=== PATIENT | female | born 1985 | race Caucasian/White ===

== ENCOUNTER 2017-05-25 01:58 | Emergency (ER) | payer BC, OTHER ==
[2017-05-25] MEDS ORDERED: Sodium Chloride 0.9% 1,000 ML IV SCH ×2 (03:00→05:30)
[2017-05-25] MEDS ORDERED: Morphine 4 MG/ML Syringe IVPUSH ONE (03:04)
[2017-05-25] MEDS ORDERED: Lidocaine/EPINEPHrine/Tetracaine Soln 5 ML Each TOP ONE (03:36)
[2017-05-25] MEDS ORDERED: fentaNYL 100 MCG/2 ML SDV IVPUSH ONE (03:37)
[2017-05-25] MEDS ORDERED: LORazepam 2 MG/ML MDV IVPUSH ONE (03:40)
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
--- NOTE | 2017-06-10 09:32 | ER ---
DATE SEEN: 05/25/2017 ADDENDUM: Please note that the length of the laceration was about 1.5 cm. /[id number] RAFIA/JAMESL
== END 2017-05-25 05:10 ==
LOC: FB.ED 01:58
DX: S01.511A Laceration without foreign body of lip, initial encounter (principal); S01.21XA Laceration without foreign body of nose, initial encounter; S01.111A Laceration without foreign body of right eyelid and periocular area, initial encounter; S51.011A Laceration without foreign body of right elbow, initial encounter; F10.129 Alcohol abuse with intoxication, unspecified; V89.2XXA Person injured in unspecified motor-vehicle accident, traffic, initial encounter
CPT/HCPCS: 12011; 36415; 70450; 70486; 71250; 72125; 80053; 84702; 85025; 96361; 96374; 96375; 99291; A9270; G0480; J2060; J2270; J3010; J7040

== ENCOUNTER 2017-07-28 17:56 | Emergency (ER) | payer OTHER, BC ==
[2017-07-28] MEDS ORDERED: Ondansetron 4 MG Tab.DIS PO ONE (18:29)
[2017-07-28] MEDS ORDERED: Ketorolac 60 MG/2 ML SDV IM ONE (18:29)
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
[2017-07-28 18:45] VITALS: BP 133/84
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
== END 2017-07-28 20:28 | disposition home or self-care (01) ==
LOC: FB.ED 17:56
DX: R07.81 Pleurodynia (principal); F17.210 Nicotine dependence, cigarettes, uncomplicated; Z88.1 Allergy status to other antibiotic agents; Z79.899 Other long term (current) drug therapy
CPT/HCPCS: 71101; 96372; 99283; A9270; J1885

== ENCOUNTER 2019-12-02 06:30 | Emergency (ER) | payer BC, OTHER ==
[2019-12-02] MEDS ORDERED: Ondansetron 4 MG Tab.DIS ONE (06:43)
[2019-12-02] MEDS ORDERED: Ketorolac 60 MG/2 ML SDV IM ONE (06:44)
[2019-12-02] MEDS ORDERED: Ondansetron 4 MG Tab.DIS PO STA (06:44)
[2019-12-02] MEDS ORDERED: Sodium Chloride 0.9% 10 ML Syringe FLUSH PRN (07:03)
--- NOTE | 2019-12-02 07:03 | EDM.PDOC ---
ED HPI GENERAL MEDICAL PROBLEM - General Chief Complaint: General Stated Complaint: LUMP ON SIDE OF FACE Time Seen by Provider: 12/02/19 07:00 Source of Information: Reports: Patient History Limitations: Reports: No Limitations - History of Present Illness INITIAL COMMENTS - FREE TEXT/NARRATIVE: Patient presented to the ED because pain and swelling on the left jaw. She was seen in the clinic yesterday and was diagnosed with bacterial parotitis and started on clindamycin 300 mg 4 times daily and cipro 500 mg po BID x 10days. The swelling got worse as well as the pain and c/o nausea but no vomiting. There is no associated fever or chills. Left Face Pain Score (Numeric/FACES): 8 - Related Data Allergies Allergy/AdvReac Type Severity Reaction Status Date / Time amoxicillin [From Augmentin] Allergy Rash Verified 12/02/19 06:45 clavulanic acid Allergy Rash Verified 12/02/19 06:45 [From Augmentin] erythromycin base Allergy Vomiting Verified 12/02/19 06:45 [Erythromycin Base] Home Meds: Home Meds ARIPiprazole [Abilify] 2.5 mg PO DAILY 12/02/19 [History] Ciprofloxacin [Ciprofloxacin HCl] 500 mg PO ASDIRECTED 12/02/19 [History] Clindamycin HCl 300 mg PO ASDIRECTED 12/02/19 [History] Clindamycin HCl 300 mg PO QID #40 capsule 12/02/19 [Rx] FLUoxetine HCl [Prozac] 80 mg PO DAILY 12/02/19 [History] Ibuprofen 800 mg PO TID PRN #30 tablet 12/02/19 [Rx] Mirtazapine [Remeron] 15 mg PO BEDTIME 12/02/19 [History] Ondansetron [Zofran ODT] 4 mg PO Q6H PRN #10 tab.dis 12/02/19 [Rx] Pregabalin [Lyrica] 25 mg PO DAILY 12/02/19 [History] hydrOXYzine HCL [Hydroxyzine HCl] 75 mg PO DAILY 12/02/19 [History] tiZANidine 2 mg PO TID 12/02/19 [History] traZODone 100 mg PO DAILY 12/02/19 [History] Past Medical History Other Genitourinary History: Stent placed for kidney stones. 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 Neurological History: Reports: Migraines Psychiatric History: Reports: Anxiety, Depression, OCD - Past Surgical History HEENT Surgical History: Reports: Tonsillectomy, Other (See Below) GI Surgical History: Reports: Appendectomy Musculoskeletal Surgical History: Reports: Shoulder Surgery Social & Family History - Family History Family Medical History: Noncontributory - Tobacco Use Smoking Status *Q: Current Every Day Smoker Years of Tobacco use: 15 Packs/Tins Daily: 0.4 - Caffeine Use Caffeine Use: Reports: Soda - Recreational Drug Use Recreational Drug Use: No ED ROS GENERAL - Review of Systems Review Of Systems: See Below Constitutional: Reports: No Symptoms HEENT: Reports: No Symptoms Respiratory: Reports: No Symptoms Cardiovascular: Reports: No Symptoms Endocrine: Reports: No Symptoms GI/Abdominal: Reports: Nausea : Reports: No Symptoms Musculoskeletal: Reports: No Symptoms Skin: Reports: No Symptoms Neurological: Reports: No Symptoms ED EXAM, GENERAL - Physical Exam Exam: See Below Exam Limited By: No Limitations General Appearance: Alert Eye Exam: Bilateral Eye: PERRL Nose: Normal Inspection, Normal Mucosa Throat/Mouth: Normal Inspection, Normal Lips, Other (tenderness and swelling, left jaw) Head: Atraumatic, Normocephalic Neck: Normal Inspection, Supple, Non-Tender Respiratory/Chest: No Respiratory Distress, Lungs Clear, Normal Breath Sounds Cardiovascular: Normal Peripheral Pulses, Regular Rate, Rhythm, No Edema GI/Abdominal: Normal Bowel Sounds, Soft, Non-Tender Extremities: Normal Inspection, Normal Range of Motion Neurological: Alert, Oriented, CN II-XII Intact, Normal Cognition Psychiatric: Normal Affect Course - Vital Signs Text/Narrative:: labs-pending Rocephine 1 gm IV toradol 60 mg IM x1 Zofran ODT 4 mg PO x1 Last Recorded V/S: Last Vital Signs Temp 37.3 C 12/02/19 06:35 Pulse 113 H 12/02/19 06:35 Resp 16 12/02/19 06:35 BP 144/95 H 12/02/19 06:35 Pulse Ox 98 12/02/19 06:35 - Orders/Labs/Meds Orders: Active Orders 24 hr Category Date Time Status BASIC METABOLIC PANEL,BMP [CHEM] Stat Lab 12/02/19 07:20 Received CBC WITH AUTO DIFF [HEME] Stat Lab 12/02/19 07:20 Received CRP [C-REACTIVE PROTEIN] [CHEM] Stat Lab 12/02/19 07:20 Received MUMPS ANTIBODIES, IGG Routine Lab 12/02/19 07:28 Ordered MUMPS ANTIBODIES, IGM Routine Lab 12/02/19 07:28 Ordered MUMPS VIRAL CULTURE Routine Lab 12/02/19 07:28 Ordered Sodium Chloride 0.9% [Normal Saline] 1,000 ml Med 12/02/19 07:30 Active IV ASDIRECTED Sodium Chloride 0.9% [Saline Flush] Med 12/02/19 07:03 Active 10 ml FLUSH ASDIRECTED PRN cefTRIAXone [Rocephin] Med 12/02/19 07:30 Active 1 gm IVPUSH Q24H Saline Lock Insert [OM.PC] Routine Oth 12/02/19 07:03 Ordered Medication Orders Ceftriaxone Sodium (Rocephin) 1 gm IVPUSH Q24H ULYSSES Sodium Chloride (Normal Saline) 1,000 mls @ 999 mls/hr IV ASDIRECTED ULYSSES Sodium Chloride (Saline Flush) 10 ml FLUSH ASDIRECTED PRN PRN Reason: Keep Vein Open Meds: Medications Generic Name Dose Route Start Last Admin Trade Name Freq PRN Reason Stop Dose Admin Ceftriaxone Sodium 1 gm 12/02/19 07:30 Rocephin IVPUSH Q24H ULYSSES Sodium Chloride 1,000 mls @ 999 mls/hr 12/02/19 07:30 Normal Saline IV ASDIRECTED ULYSSES Sodium Chloride 10 ml 12/02/19 07:03 Saline Flush FLUSH ASDIRECTED PRN Keep Vein Open Discontinued Medications Generic Name Dose Route Start Last Admin Trade Name Freq PRN Reason Stop Dose Admin Ketorolac Tromethamine 60 mg 12/02/19 06:44 12/02/19 06:54 Toradol IM 12/02/19 06:45 60 mg ONETIME ONE Administration Ondansetron HCl 4 mg 12/02/19 06:44 12/02/19 06:52 Zofran Odt PO 12/02/19 06:45 4 mg NOW STA Administration Ondansetron HCl Confirm 12/02/19 06:43 12/02/19 06:52 Zofran Odt Administered 12/02/19 06:44 Not Given Dose 4 mg .ROUTE .STK-MED ONE Departure - Departure Time of Disposition: 08:30 Disposition: Home, Self-Care 01 Condition: Good Clinical Impression: Parotitis, acute - Discharge Information Prescriptions: Clindamycin HCl 300 mg PO QID #40 capsule Ibuprofen 800 mg PO TID PRN #30 tablet PRN Reason: Pain Ondansetron [Zofran ODT] 4 mg PO Q6H PRN #10 tab.dis PRN Reason: Nausea Instructions: Parotitis, [id number] Referrals: Vic Barrientos MD [Primary Care Provider] - Forms: ED Department Discharge Additional Instructions: please read discharge instructions on parotis ibuprofen 800 mg 3 times daily for 7 days clindamycin 600 mg 4 times daily for 10 days Rocephin 1 gm IV daily for 5 days Zofran ODT 4 mg every 6 hours as needed for nausea Tylenol with codeine 1-2 tablets every 4-6 hours as needed for pain follow up with your doctor this coming week Sepsis Event Note (ED) - Evaluation Sepsis Screening Result: Possible Sepsis Risk - Focused Exam Vital Signs: Vital Signs Temp Pulse Resp BP Pulse Ox 12/02/19 06:35 37.3 C 113 H 16 144/95 H 98 - My Orders Last 24 Hours: My Active Orders 12/02/19 07:03 Sodium Chloride 0.9% [Saline Flush] 10 ml FLUSH ASDIRECTED PRN Saline Lock Insert [OM.PC] Routine 12/02/19 07:20 BASIC METABOLIC PANEL,BMP [CHEM] Stat CBC WITH AUTO DIFF [HEME] Stat CRP [C-REACTIVE PROTEIN] [CHEM] Stat 12/02/19 07:28 MUMPS ANTIBODIES, IGG Routine MUMPS ANTIBODIES, IGM Routine MUMPS VIRAL CULTURE Routine 12/02/19 07:30 Sodium Chloride 0.9% [Normal Saline] 1,000 ml IV ASDIRECTED cefTRIAXone [Rocephin] 1 gm IVPUSH Q24H - Assessment/Plan Last 24 Hours: My Active Orders 12/02/19 07:03 Sodium Chloride 0.9% [Saline Flush] 10 ml FLUSH ASDIRECTED PRN Saline Lock Insert [OM.PC] Routine 12/02/19 07:20 BASIC METABOLIC PANEL,BMP [CHEM] Stat CBC WITH AUTO DIFF [HEME] Stat CRP [C-REACTIVE PROTEIN] [CHEM] Stat 12/02/19 07:28 MUMPS ANTIBODIES, IGG Routine MUMPS ANTIBODIES, IGM Routine MUMPS VIRAL CULTURE Routine 12/02/19 07:30 Sodium Chloride 0.9% [Normal Saline] 1,000 ml IV ASDIRECTED cefTRIAXone [Rocephin] 1 gm IVPUSH Q24H
[2019-12-02] MEDS ORDERED: Sodium Chloride 0.9% 1,000 ML IV SCH (07:30)
[2019-12-02] MEDS ORDERED: cefTRIAXone 1 GM Vial IVPUSH SCH (07:30)
[2019-12-02 09:37] VITALS: BP 114/69; PULSE 82
== END 2019-12-02 09:17 | disposition home or self-care (01) ==
LOC: FB.ED 06:30
DX: K11.21 Acute sialoadenitis (principal); F41.9 Anxiety disorder, unspecified; F32.9 Major depressive disorder, single episode, unspecified; F17.210 Nicotine dependence, cigarettes, uncomplicated; Z88.1 Allergy status to other antibiotic agents; Z79.899 Other long term (current) drug therapy
CPT/HCPCS: 36415; 80048; 85025; 86140; 96372; 99283; A9270-GY; J0696; J1885; J7030

== ENCOUNTER 2019-12-09 11:01 | Emergency (ER) | payer BC ==
--- NOTE | 2019-12-09 11:25 | EDM.PDOC ---
ED HPI GENERAL MEDICAL PROBLEM - General Chief Complaint: Lower Extremity Injury/Pain Stated Complaint: RT FOOT INJURY Time Seen by Provider: 12/09/19 11:15 Source of Information: Reports: Patient History Limitations: Reports: No Limitations - History of Present Illness INITIAL COMMENTS - FREE TEXT/NARRATIVE: Greer comes into [facility] ED with a painful, swollen R foot. She was getting out of bed at 0300 hrs this am to let the dogs outside when she experienced pain in the R forefoot. She did not fall, twist, or step onto anything out of the ordinary. Pain with swelling and appearance of some ecchymoses of forefoot has emerged this am, prompting visit. She took some Ibuprofen for pain before arrival. Her general health is good. No . right foot Pain Score (Numeric/FACES): 6 - Related Data Allergies Allergy/AdvReac Type Severity Reaction Status Date / Time amoxicillin [From Augmentin] Allergy Rash Verified 12/09/19 11:19 clavulanic acid Allergy Rash Verified 12/09/19 11:19 [From Augmentin] erythromycin base Allergy Vomiting Verified 12/09/19 11:19 [Erythromycin Base] Home Meds: Home Meds ARIPiprazole [Abilify] 2.5 mg PO DAILY 12/02/19 [History] Ciprofloxacin [Ciprofloxacin HCl] 500 mg PO ASDIRECTED 12/02/19 [History] Clindamycin HCl 300 mg PO ASDIRECTED 12/02/19 [History] Clindamycin HCl 300 mg PO QID #40 capsule 12/02/19 [Rx] FLUoxetine HCl [Prozac] 80 mg PO DAILY 12/02/19 [History] Ibuprofen 800 mg PO TID PRN #30 tablet 12/02/19 [Rx] Mirtazapine [Remeron] 15 mg PO BEDTIME 12/02/19 [History] Ondansetron [Zofran ODT] 4 mg PO Q6H PRN #10 tab.dis 12/02/19 [Rx] Pregabalin [Lyrica] 25 mg PO DAILY 12/02/19 [History] hydrOXYzine HCL [Hydroxyzine HCl] 75 mg PO DAILY 12/02/19 [History] tiZANidine 2 mg PO TID 12/02/19 [History] traZODone 100 mg PO DAILY 12/02/19 [History] Past Medical History Other Genitourinary History: Stent placed for kidney stones. [employer] TE[employer] History: Reports: Other Musculoskeletal History: Foot cyst removed. Neurological History: Reports: Migraines Psychiatric History: Reports: Anxiety, Depression, OCD - Past Surgical History HEENT Surgical History: Reports: Tonsillectomy, Other (See Below) GI Surgical History: Reports: Appendectomy Musculoskeletal Surgical History: Reports: Shoulder Surgery Social & Family History - Family History Family Medical History: Noncontributory - Caffeine Use Caffeine Use: Reports: Soda Review of Systems - Review of Systems Review Of Systems: Comprehensive ROS is negative, except as noted in HPI. ED EXAM, GENERAL - Physical Exam Exam: See Below Exam Limited By: No Limitations General Appearance: Alert, WD/WN, Mild Distress Head: Atraumatic, Normocephalic Neck: Normal Inspection, Supple Respiratory/Chest: Lungs Clear Cardiovascular: Regular Rate, Rhythm Back Exam: Normal Inspection Extremities: Joint Swelling (R foot: visible swelling and ecchymoses in proximity to distal 2nd and 3rd MT heads with tenderness to palpitation, no crepitus; mid and hindfoot benign to exam; CMS intact) Neurological: Alert, Oriented, CN II-XII Intact, Normal Cognition, No Motor/Sensory Deficits Psychiatric: Normal Affect, Normal Mood Skin Exam: Warm, Dry, No Rash, Ecchymosis Lymphatic: No Adenopathy Course - Vital Signs Text/Narrative:: Following assessment, I obtained x rays of R foot: findings note fxs of 2nd, 3rd, and 4th MT distally in satisfactory position. She will be fitted with a CAM Boot, and provided crutches if needed for ambulation. Last Recorded V/S: Last Vital Signs Temp 36.8 C 12/09/19 11:05 Pulse 104 H 12/09/19 11:05 Resp 18 12/09/19 11:05 BP 130/81 12/09/19 11:05 Pulse Ox 96 12/09/19 11:05 - Orders/Labs/Meds Orders: Active Orders 24 hr Category Date Time Status Foot Comp Min 3V Rt [CR] Stat Exams 12/09/19 11:19 Taken Departure - Departure Time of Disposition: 12:05 Disposition: Home, Self-Care 01 Condition: Fair Clinical Impression: Closed fracture of second metatarsal bone of right foot Qualifiers: Encounter type: initial encounter Fracture alignment: nondisplaced Qualified Code(s): S92.324A - Nondisplaced fracture of second metatarsal bone, right foot, initial encounter for closed fracture Closed fracture of third metatarsal bone of right foot Qualifiers: Encounter type: initial encounter Fracture alignment: nondisplaced Qualified Code(s): S92.334A - Nondisplaced fracture of third metatarsal bone, right foot, initial encounter for closed fracture Closed fracture of fourth metatarsal bone of right foot Qualifiers: Encounter type: initial encounter Fracture alignment: nondisplaced Qualified Code(s): S92.344A - Nondisplaced fracture of fourth metatarsal bone, right foot, initial encounter for closed fracture - Discharge Information *PRESCRIPTION DRUG MONITORING PROGRAM REVIEWED*: Not Applicable *COPY OF PRESCRIPTION DRUG MONITORING REPORT IN PATIENT BUFFY: Not Applicable Referrals: Vic Barrientos MD [Primary Care Provider] - Forms: ED Department Discharge Sepsis Event Note (ED) - Focused Exam Vital Signs: Vital Signs Temp Pulse Resp BP Pulse Ox 12/09/19 11:05 36.8 C 104 H 18 130/81 96 - Problem List & Annotations (1) Closed fracture of fourth metatarsal bone of right foot SNOMED Code(s): 56258782 Code(s): S92.341A - DISP FX OF FOURTH METATARSAL BONE, RIGHT FOOT, INIT Status: Acute Current Visit: Yes Annotation/Comment:: CAM Boot, crutches if needed, NSAIDs for pain, RICE. Qualifiers: Encounter type: initial encounter Fracture alignment: nondisplaced Qualified Code(s): S92.344A - Nondisplaced fracture of fourth metatarsal bone, right foot, initial encounter for closed fracture (2) Closed fracture of second metatarsal bone of right foot SNOMED Code(s): 56875688 Code(s): S92.321A - DISP FX OF SECOND METATARSAL BONE, RIGHT FOOT, INIT Status: Acute Current Visit: Yes Annotation/Comment:: CAM Boot, crutches if needed, NSAIDs, RICE Qualifiers: Encounter type: initial encounter Fracture alignment: nondisplaced Qualified Code(s): S92.324A - Nondisplaced fracture of second metatarsal bone, right foot, initial encounter for closed fracture (3) Closed fracture of third metatarsal bone of right foot SNOMED Code(s): 383973799 Code(s): S92.331A - DISP FX OF THIRD METATARSAL BONE, RIGHT FOOT, INIT Status: Acute Current Visit: Yes Annotation/Comment:: CAM Boot, crutches if needed, NSAIDS, RICE Qualifiers: Encounter type: initial encounter Fracture alignment: nondisplaced Qualified Code(s): S92.334A - Nondisplaced fracture of third metatarsal bone, right foot, initial encounter for closed fracture - Problem List Review Problem List Initiated/Reviewed/Updated: Yes - My Orders Last 24 Hours: My Active Orders 12/09/19 11:19 Foot Comp Min 3V Rt [CR] Stat - Assessment/Plan Last 24 Hours: My Active Orders 12/09/19 11:19 Foot Comp Min 3V Rt [CR] Stat Plan: Follow up with PCP in 7-10 days.
[2019-12-09 11:47] VITALS: BP 130/81; PULSE 104
--- NOTE | 2019-12-09 17:28 | CR ---
INDICATION: Injury. Ecchymosis with swelling and tenderness 2nd and 3rd metatarsals. RIGHT FOOT: Three views of the right foot were obtained 12/09/19 - no comparisons. Oblique fractures through the distal shafts and metaphyses of the 2nd and 3rd metatarsals are noted with lateral offset of the distal fracture fragments to a greater extent at the 3rd metatarsal fracture site, which is slightly comminuted. An additional non-distracted, slightly angulated fracture that is comminuted is noted at the distal metaphysis of the 4th metatarsal. No other bone or joint abnormality was identified. IMPRESSION: Fractures 2nd through 4th metatarsals. Report was given in person to Dr. Murray soon after the examination was completed. [facility]
== END 2019-12-09 12:08 | disposition home or self-care (01) ==
LOC: FB.ED 11:01
DX: S92.324A Nondisplaced fracture of second metatarsal bone, right foot, initial encounter for closed fracture (principal); S92.334A Nondisplaced fracture of third metatarsal bone, right foot, initial encounter for closed fracture; S92.344A Nondisplaced fracture of fourth metatarsal bone, right foot, initial encounter for closed fracture; F41.9 Anxiety disorder, unspecified; F32.9 Major depressive disorder, single episode, unspecified; Z88.1 Allergy status to other antibiotic agents; Z79.899 Other long term (current) drug therapy; X58.XXXA Exposure to other specified factors, initial encounter
CPT/HCPCS: 73630-RT; 99283

== ENCOUNTER 2020-05-01 06:48 | Day surgery (SDC) | payer BC ==
[~2020-05-01 06:48] MED LIST: Lactated Ringers 1,000 ML IV SCH; Sodium Chloride 0.9% 10 ML Syringe FLUSH PRN
[2020-05-01] MEDS ORDERED: Propofol 200 MG/20 ML SDV IV ONE (06:49)
--- NOTE | 2020-05-01 08:22 | PCM.OPNOTE ---
- General Post-Op/Procedure Note Date of Surgery/Procedure: 05/01/20 Operative Procedure(s): egd with cold forcep biopsy Findings: gastritis esophagitis Pre Op Diagnosis: gerd Post-Op Diagnosis: gastritis. esophagitis Anesthesia Technique: MAC Primary Surgeon: Vaughn Galvez Anesthesia Provider: Jemal Banda Pathology: stomach and distal esophagus Complications: None Condition: Good Free Text/Narrative:: see dictation
[2020-05-01 09:33] VITALS: BP 118/62; PULSE 67
--- NOTE | 2020-05-01 12:46 | OR ---
DATE OF OPERATION: 05/01/2020 SURGEON: Vaughn Galvez MD PROCEDURE PERFORMED: Esophagogastroduodenoscopy with cold forceps biopsy. PREOPERATIVE DIAGNOSIS: Symptomatic gastroesophageal reflux disease. POSTOPERATIVE DIAGNOSIS: Gastritis as well as esophagitis. INDICATIONS FOR PROCEDURE: This is a 34-year-old white female who is having an exacerbation of her reflux disease. She was offered and accepted an EGD to evaluate the severity. She has never had an upper endoscopy. DESCRIPTION OF OPERATION: After an excellent IV sedation was administered, the bite block was inserted. Flexible endoscope was passed without difficulty down the patient's esophagus into the stomach. The stomach was insufflated. Scope passed through the pylorus, second portion duodenum, and slowly withdrawn. The following findings were noted. The duodenum was essentially unremarkable. The stomach demonstrated diffuse gastritis. Multiple biopsies were taken. GE junction measured at 40 cm and the distal 1 cm demonstrated some evidence of what appeared to be esophagitis. Circumferential biopsies were taken. The remainder of the esophageal exam was unremarkable. Results will be sent to the patient via letter. She is taken to Recovery, having tolerated the procedure. /[id number] /MODL
== END 2020-05-01 09:08 | disposition home or self-care (01) ==
LOC: FB.SDS 06:48
PROVIDERS: ATTEND Surgery
DX: K29.50 Unspecified chronic gastritis without bleeding (principal); K21.00 Gastro-esophageal reflux disease with esophagitis, without bleeding; F41.9 Anxiety disorder, unspecified; F17.210 Nicotine dependence, cigarettes, uncomplicated; F33.1 Major depressive disorder, recurrent, moderate; Z79.899 Other long term (current) drug therapy; Z88.8 Allergy status to other drugs, medicaments and biological substances; Z98.890 Other specified postprocedural states
CPT/HCPCS: 00731-QZ; 88305; 88313; 88342; J2704; J7120

== ENCOUNTER 2022-02-09 11:12 | Emergency (ER) | payer BC, OTHER ==
[2022-02-09] MEDS ORDERED: Ondansetron 4 MG Tab.DIS PO ONE ×2 (11:13→11:28)
[2022-02-09 13:12] VITALS: BP 129/81
[2022-02-09 13:23] VITALS: PULSE 103
== END 2022-02-09 12:10 | disposition home or self-care (01) ==
LOC: FB.ED 11:12
DX: R11.0 Nausea (principal); Z88.0 Allergy status to penicillin; Z88.1 Allergy status to other antibiotic agents; Z79.899 Other long term (current) drug therapy
CPT/HCPCS: 80307; 99283; Q0162; 99281

== ENCOUNTER 2022-04-03 21:12 | Emergency (ER) | payer OTHER ==
[2022-04-03] MEDS ORDERED: Sodium Chloride 0.9% 10 ML Syringe FLUSH PRN (21:24)
[2022-04-03] MEDS ORDERED: Sodium Chloride 0.9% 1,000 ML IV ONE (21:24)
[2022-04-03 21:48] LABS: ESTIMATED GFR 120 mL/min (>60)
[2022-04-03 22:03] LABS: ACETAMINOPHEN < 2 ug/mL (<2)
[2022-04-04 05:52] VITALS: BP 110/53; PULSE 92
== END 2022-04-04 08:52 ==
LOC: FB.ED 21:12
DX: T50.912A Poisoning by multiple unspecified drugs, medicaments and biological substances, intentional self-harm, initial encounter (principal); S61.512A Laceration without foreign body of left wrist, initial encounter; R45.851 Suicidal ideations; R41.82 Altered mental status, unspecified; R09.02 Hypoxemia; F10.921 Alcohol use, unspecified with intoxication delirium; F17.210 Nicotine dependence, cigarettes, uncomplicated; Z20.822 Contact with and (suspected) exposure to COVID-19; Z88.0 Allergy status to penicillin; Z88.1 Allergy status to other antibiotic agents; Z79.899 Other long term (current) drug therapy; Z86.16 Personal history of COVID-19; Z90.710 Acquired absence of both cervix and uterus
CPT/HCPCS: 36415; 80053; 80143; 80179; 80307; 81001; 83735; 85025; 87635; 93005; 96360; 99285; J3490; J7030; U0002

== ENCOUNTER 2022-06-20 19:23 | Emergency (ER) | payer OTHER ==
[2022-06-20] MEDS ORDERED: traMADol 50 MG Tab PO STA (19:43)
[2022-06-20] MEDS ORDERED: Azithromycin 500 MG Tab PO ONE (19:43)
[2022-06-20 19:53] VITALS: BP 117/74; PULSE 75
== END 2022-06-20 19:57 | disposition home or self-care (01) ==
LOC: FB.ED 19:23
DX: L03.213 Periorbital cellulitis (principal); Z88.0 Allergy status to penicillin; Z88.1 Allergy status to other antibiotic agents; Z86.16 Personal history of COVID-19
CPT/HCPCS: 99283; A9270

== ENCOUNTER 2024-06-07 20:19 | Emergency (ER) | payer OTHER, MEDICAID ==
[2024-06-07] MEDS: Ketorolac 30 MG/ML SDV IM ONE (22:17)
[2024-06-07 22:34] VITALS: BP 149/93; PULSE 95
== END 2024-06-07 22:30 | disposition home or self-care (01) ==
LOC: FB.ED 20:19
DX: S93.601A Unspecified sprain of right foot, initial encounter (principal); Z90.49 Acquired absence of other specified parts of digestive tract; Z90.710 Acquired absence of both cervix and uterus; Z86.16 Personal history of COVID-19; Z88.0 Allergy status to penicillin; Z88.1 Allergy status to other antibiotic agents; Z88.8 Allergy status to other drugs, medicaments and biological substances; Z79.899 Other long term (current) drug therapy; X58.XXXA Exposure to other specified factors, initial encounter
CPT/HCPCS: 73630; 96372; 99283; J1885

== ENCOUNTER 2024-07-15 19:29 | Observation (INO) | payer OTHER, MEDICAID ==
[2024-07-15] MEDS: Sodium Chloride 0.9% 1,000 ML IV ONE ×3 (20:00→22:16)
[2024-07-15] MEDS: Sodium Chloride 0.9% 10 ML Syringe FLUSH PRN (20:01)
[2024-07-15] MEDS: Ondansetron 4 MG/2 ML SDV IVPUSH ONE (20:06)
[2024-07-15 20:12] LABS: BASOPHILS ABSOLUTE AUTO 0.1 x10-3/uL (0.0-0.1); EOSINOPHILS ABSOLUTE AUTO 0.1 x10-3/uL (0.0-0.8); EOSINOPHILS PERCENT AUTO 1.2 % (0.6-8.1); HEMATOCRIT 42.1 % (34.2-48.2); HEMOGLOBIN 14.6 g/dL (11.4-15.5); LYMPHOCYTES ABSOLUTE AUTO 1.9 x10-3/uL (1.0-4.4); LYMPHOCYTES PERCENT AUTO 18.8 % (18.4-52.1); MEAN CORPUSCULAR HEMOGLOBIN 32.9 pg (23.9-33.9); MEAN CORPUSCULAR HGB CONC 34.8 g/dL (31.9-34.8); MEAN CORPUSCULAR VOLUME 94.6 fL (76.7-100.5); MEAN PLATELET VOLUME 7.3 fL (7.1-12.4); MONOCYTES ABSOLUTE AUTO 0.9 x10-3/uL (0.3-1.0); NEUTROPHILS ABSOLUTE AUTO 7.2 x10-3/uL (1.5-6.3); PLATELET COUNT,PLT 283 x10(3)uL (151-488); RED BLOOD CELL COUNT 4.45 x10(6)uL (3.60-5.20); RED CELL DISTRIBUTION WIDTH 13.8 % (12.3-16.5); WHITE BLOOD CELL COUNT,WBC 10.2 x10-3/uL (3.0-10.3)
[2024-07-15 20:16] LABS: BLOOD UREA NITROGEN,BUN 7 mg/dL (7-18); BUN/CREATININE RATIO 8.8 (9-20); CALCIUM 8.3 mg/dL (8.6-10.2); CARBON DIOXIDE,CO2 27 mmol/L (21-32); CHLORIDE,CL 100 mmol/L (100-110); CREATININE 0.8 mg/dL (0.55-1.02); EST CRCL DRUG DOSING (CG) 93.63 mL/min; ESTIMATED GFR 97 mL/min (>60); GLUCOSE RANDOM 169 mg/dL (80-116); POTASSIUM,K 3.3 mmol/L (3.5-5.3); SODIUM,NA 142 mmol/L (135-145)
[2024-07-15 20:21] LABS: A/G RATIO 1.1; ALANINE AMINOTRANSFERASE,ALT 51 U/L (12-36); ALBUMIN 4.1 g/dL (3.5-5.2); ALKALINE PHOSPHATASE 77 IU/L (56-112); ASPARTATE AMNIOTRANSFERASE,AST 63 IU/L (5-25); PROTEIN TOTAL,TP 7.8 g/dL (6.0-8.0)
[2024-07-15 20:26] LABS: MAGNESIUM 1.2 mg/dL (1.8-2.5)
[2024-07-15 20:41] LABS: BILIRUBIN,URINE SMALL (NEGATIVE); GLUCOSE,URINE NORMAL (NORMAL); KETONES,URINE 15 mg/dL (NEGATIVE); LEUKOCYTE ESTERASE,URINE MODERATE (NEGATIVE); NITRITE,URINE POSITIVE (NEGATIVE); OCCULT BLOOD,URINE MODERATE (NEGATIVE); PROTEIN,URINE 500 mg/dL (NEGATIVE); UROBILINOGEN,URINE 8 mg/dL (NEGATIVE)
[2024-07-15 20:45] LABS: APPEARANCE,URINE CLOUDY (CLEAR); BACTERIA,URINE MODERATE (NS); COLOR,URINE YELLOW (YELLOW); RBC,URINE 0-5 (0-5); SQUAMOUS EPITHELIAL CELLS,UR MODERATE (NS,R,O)
[2024-07-15 20:46] LABS: AMORPHOUS SEDIMENT,URINE PACKED
[2024-07-15] MEDS: Magnesium Sulfate/Water Premix 2 GM in Premix Bag 1 BAG IV ONE (20:48)
[2024-07-15] MEDS: diphenhydrAMINE 50 MG/ML SDV IVPUSH ONE (21:10)
[2024-07-15] MEDS: Prochlorperazine 10 MG/2 ML SDV IVPUSH ONE (21:11)
[2024-07-15] MEDS: cefTRIAXone 2 GM Vial IVPUSH ONE (22:16)
[2024-07-15] MEDS: Sodium Chloride 0.9% 1,000 ML IV SCH (23:54)
[2024-07-15] MEDS ORDERED: Prochlorperazine 5 MG in Sodium Chloride 0.9% 50 ML IV PRN (23:59)
[2024-07-16] MEDS ORDERED: Non-Formulary Medication 1 Each (Hydroxyzine Hcl [Hydroxyzine Hcl] 50 MG Tablet) PO PRN (00:29)
[2024-07-16] MEDS: Sodium Chloride 0.9% 500 ML IV ONE (00:46)
[2024-07-16] MEDS: Pantoprazole 40 MG Vial IVPUSH SCH (00:58)
[2024-07-16] MEDS: Ondansetron 4 MG/2 ML SDV IV PRN (01:01)
[2024-07-16] MEDS: FLUoxetine 10 MG Cap PO SCH (01:03)
[2024-07-16] MEDS: FLUoxetine 20 MG Cap PO SCH (01:03)
[2024-07-16] MEDS: Prazosin 1 MG Cap PO SCH (01:03)
[2024-07-16] MEDS: busPIRone 15 MG Tab PO SCH (01:04)
[2024-07-16] MEDS: traZODone 50 MG Tab PO SCH (01:04)
[2024-07-16] MEDS: Acetaminophen 325 MG Tab PO PRN (01:04)
[2024-07-16] MEDS: Prochlorperazine 10 MG/2 ML SDV IVPUSH PRN (04:25)
[2024-07-16] MEDS: hydrOXYzine HCl 25 MG Tab PO PRN (04:25)
[2024-07-16 04:29] VITALS: PULSE 86
[2024-07-16] MEDS: Magnesium Sulfate/Water Premix 2 GM in Premix Bag 1 BAG IV ONE (05:00)
[2024-07-16 07:42] LABS: BASOPHILS PERCENT AUTO 0.5 % (0.2-1.5); EOSINOPHILS ABSOLUTE AUTO 0.2 x10-3/uL (0.0-0.8); EOSINOPHILS PERCENT AUTO 2.8 % (0.6-8.1); HEMATOCRIT 37.1 % (34.2-48.2); HEMOGLOBIN 12.7 g/dL (11.4-15.5); LYMPHOCYTES ABSOLUTE AUTO 2.4 x10-3/uL (1.0-4.4); LYMPHOCYTES PERCENT AUTO 30.8 % (18.4-52.1); MEAN CORPUSCULAR HGB CONC 34.3 g/dL (31.9-34.8); MEAN CORPUSCULAR VOLUME 96.1 fL (76.7-100.5); MEAN PLATELET VOLUME 7.3 fL (7.1-12.4); MONOCYTES ABSOLUTE AUTO 0.8 x10-3/uL (0.3-1.0); MONOCYTES PERCENT AUTO 9.9 % (4.4-15.7); NEUTROPHILS ABSOLUTE AUTO 4.3 x10-3/uL (1.5-6.3); PLATELET COUNT,PLT 186 x10(3)uL (151-488); RED BLOOD CELL COUNT 3.85 x10(6)uL (3.60-5.20); RED CELL DISTRIBUTION WIDTH 13.8 % (12.3-16.5); WHITE BLOOD CELL COUNT,WBC 7.6 x10-3/uL (3.0-10.3)
[2024-07-16 07:49] LABS: BLOOD UREA NITROGEN,BUN 6 mg/dL (7-18); BUN/CREATININE RATIO 8.6 (9-20); CALCIUM 6.6 mg/dL (8.6-10.2); CARBON DIOXIDE,CO2 26 mmol/L (21-32); CHLORIDE,CL 105 mmol/L (100-110); CREATININE 0.7 mg/dL (0.55-1.02); ESTIMATED GFR 114 mL/min (>60); GLUCOSE RANDOM 138 mg/dL (80-116); MAGNESIUM 2.1 mg/dL (1.8-2.5); POTASSIUM,K 3.5 mmol/L (3.5-5.3); SODIUM,NA 142 mmol/L (135-145)
[2024-07-16] MEDS ORDERED: busPIRone 15 MG Tab PO SCH (09:00)
[2024-07-16 09:16] VITALS: BP 143/89
[2024-07-16] MEDS ORDERED: Prazosin 1 MG Cap PO SCH (21:00)
[2024-07-16] MEDS ORDERED: Non-Formulary Medication 1 Each (Trazodone [Trazodone] 150 MG Tablet) PO SCH (21:00)
[2024-07-16] MEDS ORDERED: FLUoxetine 10 MG Cap PO SCH (21:00)
[2024-07-16] MEDS ORDERED: traZODone 50 MG Tab PO SCH (21:00)
[2024-07-16] MEDS ORDERED: FLUoxetine 20 MG Cap PO SCH (21:00)
== END 2024-07-16 10:10 | disposition home or self-care (01) ==
LOC: FB.ED 19:29 → FB.MS 23:49
PROVIDERS: ADMIT Emergency Medicine; ATTEND Family Medicine
DX: U07.1 COVID-19 (principal); E83.42 Hypomagnesemia; E87.20 Acidosis, unspecified; F32.A Depression, unspecified; N39.0 Urinary tract infection, site not specified; F41.9 Anxiety disorder, unspecified; Z79.899 Other long term (current) drug therapy; Z88.0 Allergy status to penicillin; Z88.1 Allergy status to other antibiotic agents
CPT/HCPCS: 36415; 71046; 80048; 80053; 81001; 83605; 83735; 85025; 86140; 87040; 87086; 87428; 96361; 96365; 96366; 96375; 96376; 99285; A9270; G0378; J0696; J0780; J1200; J2405; J2470; J3475; J7030; 99222; 99238

== ENCOUNTER 2025-03-17 01:20 | Emergency (ER) | payer OTHER, MEDICAID ==
[2025-03-17 02:05] LABS: BASE EXCESS VENOUS,POC 0 mmol/L (-2 - 3+); PCO2 VENOUS,POC 30 mmHg (41-51); PH VENOUS,POC 7.48 pH Units (7.32-7.43)
[2025-03-17 02:17] LABS: A/G RATIO 0.9; BILIRUBIN TOTAL 0.5 mg/dL (0.1-1.3); CARBON DIOXIDE,CO2 22 mmol/L (21-32); CHLORIDE,CL 106 mmol/L (100-110); CREATININE 0.6 mg/dL (0.55-1.02); EST CRCL DRUG DOSING (CG) 123.63 mL/min; ESTIMATED GFR 118 mL/min (>60); GLUCOSE RANDOM 206 mg/dL (80-116); POTASSIUM,K 2.9 mmol/L (3.5-5.3); PROTEIN TOTAL,TP 8.0 g/dL (6.0-8.0); SODIUM,NA 143 mmol/L (135-145)
[2025-03-17 02:19] LABS: BLOOD UREA NITROGEN,BUN < 5 mg/dL (7-18); PRO B-TYPE NATRIUR PEPT,BNPPRO 13 pg/mL (<=125)
[2025-03-17 02:20] LABS: ALANINE AMINOTRANSFERASE,ALT 183 U/L (12-36); ASPARTATE AMNIOTRANSFERASE,AST 338 IU/L (5-25)
[2025-03-17] MEDS: Potassium Chloride 20 MEQ Tab.ER PO ONE (02:38)
[2025-03-17 02:39] LABS: BASOPHILS ABSOLUTE AUTO 0.0 x10-3/uL (0.0-0.1); BASOPHILS PERCENT AUTO 0.3 % (0.2-1.5); EOSINOPHILS ABSOLUTE AUTO 0.3 x10-3/uL (0.0-0.8); EOSINOPHILS PERCENT AUTO 2.0 % (0.6-8.1); LYMPHOCYTES ABSOLUTE AUTO 4.5 x10-3/uL (1.0-4.4); LYMPHOCYTES PERCENT AUTO 35.1 % (18.4-52.1); MEAN PLATELET VOLUME 7.7 fL (7.1-12.4); MONOCYTES ABSOLUTE AUTO 1.1 x10-3/uL (0.3-1.0); MONOCYTES PERCENT AUTO 8.3 % (4.4-15.7); NEUTROPHILS ABSOLUTE AUTO 7.0 x10-3/uL (1.5-6.3); NEUTROPHILS PERCENT AUTO 54.3 % (30.8-76.2); PLATELET COUNT,PLT 237 x10(3)uL (151-488); RED BLOOD CELL COUNT 4.39 x10(6)uL (3.60-5.20); RED CELL DISTRIBUTION WIDTH 14.3 % (12.3-16.5); WHITE BLOOD CELL COUNT,WBC 12.8 x10-3/uL (3.0-10.3)
[2025-03-17] MEDS: Albuterol 0.083% 2.5 MG/3 ML Neb Soln NEB ONE (03:16)
[2025-03-17 04:09] VITALS: BP 138/86; PULSE 112
== END 2025-03-17 04:40 | disposition home or self-care (01) ==
LOC: FB.ED 01:20
DX: J45.41 Moderate persistent asthma with (acute) exacerbation (principal); J20.9 Acute bronchitis, unspecified; E87.6 Hypokalemia; E83.42 Hypomagnesemia; R79.89 Other specified abnormal findings of blood chemistry; E11.9 Type 2 diabetes mellitus without complications; Z88.0 Allergy status to penicillin; Z88.1 Allergy status to other antibiotic agents; Z79.899 Other long term (current) drug therapy; Z86.16 Personal history of COVID-19; Z87.891 Personal history of nicotine dependence
CPT/HCPCS: 36415; 71046; 80053; 82947; 83735; 83880; 84484; 85025; 85379; 86140; 93005; 93010; 99284; 99285; A9270-GY; J7512

== ENCOUNTER 2025-03-26 09:05 | Emergency (ER) | payer OTHER, MEDICAID ==
[2025-03-26] MEDS ORDERED: Sodium Chloride 0.9% 10 ML Syringe FLUSH PRN (09:31)
[2025-03-26 09:47] LABS: GLUCOSE,URINE NORMAL (NORMAL); OCCULT BLOOD,URINE MODERATE (NEGATIVE)
[2025-03-26 09:48] LABS: MEAN PLATELET VOLUME 7.8 fL (7.1-12.4); PLATELET COUNT,PLT 328 x10(3)uL (151-488); RED BLOOD CELL COUNT 4.64 x10(6)uL (3.60-5.20); RED CELL DISTRIBUTION WIDTH 14.9 % (12.3-16.5); WHITE BLOOD CELL COUNT,WBC 16.0 x10-3/uL (3.0-10.3)
[2025-03-26 09:50] LABS: APPEARANCE,URINE TURBID (CLEAR)
[2025-03-26 09:50] LABS: BLOOD UREA NITROGEN,BUN 10 mg/dL (7-18); CARBON DIOXIDE,CO2 27 mmol/L (21-32); CHLORIDE,CL 103 mmol/L (100-110); CREATININE 0.6 mg/dL (0.55-1.02); ESTIMATED GFR 118 mL/min (>60); GLUCOSE RANDOM 161 mg/dL (80-116); POTASSIUM,K 4.0 mmol/L (3.5-5.3); SODIUM,NA 142 mmol/L (135-145)
[2025-03-26 09:51] LABS: SQUAMOUS EPITHELIAL CELLS,UR FEW (NS,R,O)
[2025-03-26 09:56] LABS: ETHANOL BLOOD MEDICAL < 0.03 % (<0.03)
[2025-03-26] MEDS: Ondansetron 4 MG/2 ML SDV IVPUSH ONE (09:56)
[2025-03-26 10:01] LABS: A/G RATIO 1.1; ASPARTATE AMNIOTRANSFERASE,AST 137 IU/L (5-25); BILIRUBIN TOTAL 1.3 mg/dL (0.1-1.3); LACTIC ACID 1.4 mmol/L (0.4-2.0); PROTEIN TOTAL,TP 9.1 g/dL (6.0-8.0)
[2025-03-26 10:02] LABS: INR 1.16 (1.00-1.24)
[2025-03-26 10:04] LABS: LYMPHOCYTES PERCENT MAN 15 % (13-37); MONOCYTES PERCENT MAN 9 % (4-12); SEG NEUTROPHILS PERCENT MAN 76 % (46-82)
[2025-03-26 10:05] LABS: ALANINE AMINOTRANSFERASE,ALT 202 U/L (12-36)
[2025-03-26] MEDS: Magnesium Sulfate 2 GM/50 mL 2 GM in Premix Bag 1 BAG IV ONE (11:18)
[2025-03-26 15:14] VITALS: BP 138/91; PULSE 81
== END 2025-03-26 12:38 ==
LOC: FB.ED 09:05
DX: E11.22 Type 2 diabetes mellitus with diabetic chronic kidney disease (principal); N18.2 Chronic kidney disease, stage 2 (mild); N39.0 Urinary tract infection, site not specified; R31.9 Hematuria, unspecified; Z86.16 Personal history of COVID-19; F17.290 Nicotine dependence, other tobacco product, uncomplicated; Z88.0 Allergy status to penicillin; Z88.8 Allergy status to other drugs, medicaments and biological substances; Z79.899 Other long term (current) drug therapy
CPT/HCPCS: 80053; 80307; 81001; 83605; 83690; 83735; 85025; 85610; 86140; 87086; 96361; 96365; 96375; 99285; J2405; J2470; J2550; J3475; J7030; 99284